=== PATIENT | male | born 1940 | race Hispanic/Latino ===

== ENCOUNTER 2017-09-06 21:34 | Emergency (ER) | payer BC ==
[2017-09-06 22:06] VITALS: BP 158/77; PULSE 67; RESP 14; TEMP 97.9; O2SAT 97
--- NOTE | 2017-09-06 22:22 | ED PDOC ---
Lower Extremity Pain/Injury Time Seen by Provider: 09/06/17 22:03 Chief Complaint (Nursing): Lower Extremity Problem/Injury History Per: Patient Additional Complaint(s): Pt. states yesterday a heavy cabinet accidentally fell on his R great toe. Since then he's developed bruising, swelling, and blistering to the toe. Also states he iced the toe for approximately 30 minutes but already had blistering to the toe. Today blistering developed prompting ED visit. Denies numbness, tingling, other injury. Past Medical History Vital Signs: Last Vital Signs Temp 97.9 F 09/06/17 22:00 Pulse 67 09/06/17 22:00 Resp 14 09/06/17 22:00 BP 158/77 H 09/06/17 22:00 Pulse Ox 97 09/06/17 22:00 - Medical History PMH: Migraine Denies: Diabetes - Surgical History Surgical History: No Surg Hx - Family History Family History: States: No Known Family Hx - Home Medications Home Medications: Ambulatory Orders Medication Instructions Recorded oxyCODONE/Acetaminophen [Percocet 1 ea PO BID PRN #8 tab 02/07/15 5/325 mg Tab] - Allergies Allergies/Adverse Reactions: Allergies Allergy/AdvReac Type Severity Reaction Status Date / Time Sulfa (Sulfonamide Allergy RASH Verified 09/06/17 21:59 Antibiotics) Review of Systems ROS Statement: Except As Marked, All Systems Reviewed And Found Negative Musculoskeletal: Negative for: Leg Pain Physical Exam - Physical Exam Appears: Positive for: Well, Non-toxic, No Acute Distress Skin: Positive for: Normal Color, Warm. Negative for: Rash Eye Exam: Positive for: Normal appearance Pulses-Dorsalis Pedis (R): 2+ Extremity: Positive for: Other (RIGHT LOWER EXTREMITY: R great toe with moderate ecchymosis and swelling; intact vesicle on dorsal and plantar sruface of R great toe; nail intact; distal sensation intact of RIGHT great toe). Negative for: Calf Tenderness (b/l) Neurologic/Psych: Positive for: Alert, Oriented - ECG O2 Sat by Pulse Oximetry: 97 - Radiology X-Ray: Interpreted by Me (RIGHT great toe x-ray) X-Ray Interpretation: Other (comminuted non-displaced distal phalanx fx) - Progress ED Course And Treament: Offered pain meds but refused. R 2nd toe x-ray ordered. Pt. evaluated by Dr. Jackson, podiatry resident, who spoke with Dr. Weaver and recommends f/u in podiatry clinic tomorrow. Toes were anabelle taped by Dr. Jackson in ED. Surgical shoe and crutches provided. Pt. informed of necessary f/u with Dr. Weaver tomorrow in podiatry clinic. Agrees with care. Offered Rx for pain meds but refused. Advised to take Tylenol or Motrin for pain. Disposition - Clinical Impression Clinical Impression: Toe fracture - Patient ED Disposition Is Patient to be Admitted: No - Disposition Referrals: Podiatry Clinic [Outside] Katherine Weaver DPM [Medical Doctor] - Disposition: Routine/Home Disposition Time: 23:30 Condition: STABLE Additional Instructions: FOLLOW UP WITH DR. WEAVER TOMORROW AT 0900 IN THE PODIATRY CLINIC WITHOUT FAIL RETURN TO ED IMMEDIATELY IF SYMPTOMS WORSEN Instructions: Toe Fracture (DC) Forms: [facility] (Chinese) Print Language: GABONESE
--- NOTE | 2017-09-07 00:51 | CP.PCM.CON ---
History of Present Illness - History of Present Illness History of Present Illness: Podiatry Consult for Dr. Weaver 76 year old male with no PMH presents to the ED for right big toe pain with blisters. Patient reports that yesterday at 3pm he dropped a large cabinet while transferring the cabinet from the truck to the ground. Patient reports that he noticed swelling and plantar blister after. Reports resting and placing ice on the toe for 20-30 minutes which helps. Patient reports flying from [place] to [place] today. After taking his shoes off, he noticed the toe appearing more swollen with additional blister on top of the right big toe after the flight. He decided to come to the ED for evaluation. Patient reports 6/10 constant sharp pain to the right big toe. Worse with movement and pressure. Better with resting. Denies numbness and tingling. Patient denies nausea, fever , shortness of breath, chest pain, chills. Denies calf tenderness. PMH: none PSH: right meniscus repair, left rotatory cuff repair, right thumb ORIF, appendectomy, tonsillectomy, adenoid removal, retinal surgery SH: denies smoking, drinking or illicit drug use ALL: sulfa MEDS: Cefdinir, Aspirin, PPI FH: denies Past Patient History - Infectious Disease Hx of Infectious Diseases: None - Past Social History Smoking Status: Never Smoked - CARDIAC Hx Cardiac Disorders: No - NEUROLOGICAL Hx Migraine: Yes - GASTROINTESTINAL Hx Gastroesophageal Reflux: Yes - PSYCHIATRIC Hx Substance Use: No - SURGICAL HISTORY Hx Surgeries: No - ANESTHESIA Hx Anesthesia: No Meds Allergies/Adverse Reactions: Allergies Allergy/AdvReac Type Severity Reaction Status Date / Time Sulfa (Sulfonamide Allergy RASH Verified 09/06/17 21:59 Antibiotics) Physical Exam - Constitutional Appears: Well, Non-toxic, No Acute Distress - Extremities Exam Extremities exam: Negative for: calf tenderness Additional comments: VASC: DP and PT 2/4 bilaterally, CFT < 3 seconds to digits x10, temperature gradient warm to cold from proximal knees to distal toes, severe nonpitting edema noted to the right hallux ORTHO: moderate pain elicited with palpation to the entire right hallux, pain with hallux dorsiflexion and plantarflexion, able to wiggle toes NEURO: gross and protective sensation intact DERM: ecchymosis noted to the right hallux extending from 1st MPJ to the hallux distally, ecchymosis noted at the location of lisfranc ligament, no pain with palpation to the lisfranc ligament, no appreciable pain with piano kumar test, large serous blister noted at the level of IPJ dorsally measuring approximately 3 x 2.5 cm with separation of epidermal-dermal junction. Multiple clusters of blisters noted to the plantar aspect of hallux, serous in nature. Ecchymosis noted to the plantar aspect of the hallux. Erythema, no streaking, no open lesions noted - Psychiatric Exam Psychiatric exam: Normal Affect, Normal Mood Results - Vital Signs Recent Vital Signs: Last Vital Signs Temp 97.9 F 09/06/17 22:00 Pulse 67 09/06/17 22:00 Resp 14 09/06/17 22:00 BP 158/77 H 09/06/17 22:00 Pulse Ox 97 09/07/17 00:18 - Labs Labs: Laboratory Results - last 24 hr 09/06/17 22:48 POC Glucose (mg/dL) 166 H Assessment & Plan - Assessment and Plan (Free Text) Assessment: 76 year old male with no PMH with right hallux closed comminuted fracture with blisters Plan: Patient examined and evaluated Discussed plan in detail with attending Dr. Weaver X-rays reviewed- read by me- right distal hallux comminuted non displaced fracture Blisters prep with betadine, with a 18 gauge needed blisters aspirated drainage Patient tolerated the procedure well Dispense surgical shoe Patient to be WBAT to the heels in surgical shoe and crutches as assistance Instructed on RICE protocol, ice behind knee or on top ankle 20 minutes on and 20 minutes of no icing Recommends OTC for pain relieve Patient to follow up with Dr. Weaver in clinic tomorrow Must call for an appointment. Thank you for allowing us to take part in patient's care
--- NOTE | 2017-09-07 07:46 | RAD ---
PROCEDURE: Radiographs of the right great toe. TECHNIQUE:: AP radiograph of the right foot, with oblique and lateral view of the right great toe. COMPARISON: None. FINDINGS: BONES: There is a comminuted nondisplaced fracture of the distal phalanx right great toe. Fracture appears articular. JOINTS: No dislocation or subluxation is appreciated. The aforementioned fracture appears articular. Advanced hallux valgus deformity noted. SOFT TISSUES: Limited local soft tissue edema is seen related to the fracture site at the distal phalanx great toe. OTHER FINDINGS: None. IMPRESSION: Comminuted, articular fracture distal phalanx right great toe with limited local soft tissue edema.
== END 2017-09-07 00:22 | disposition home or self-care (01) ==
LOC: H.ER 21:34
DX: S92.411A Displaced fracture of proximal phalanx of right great toe, initial encounter for closed fracture (principal); W22.8XXA Striking against or struck by other objects, initial encounter; Y92.89 Other specified places as the place of occurrence of the external cause